=== PATIENT | female | born 1935 | race Caucasian/White ===

== ENCOUNTER 2016-10-21 01:34 | Observation (INO) | payer MEDICARE, OTHER ==
[~2016-10-21] VITALS: Ht 162.6 cm; Wt 121.5 kg
[2016-10-21] VITALS (10 sets, daily range): BP systolic 113–130; BP diastolic 55–60; PULSE 65–75; RESP 20; TEMP 98.5; Ht 162.6 cm; Wt 121.5 kg
--- NOTE | 2016-10-21 01:54 | ERA ---
ER Documentation Chief Complaint Date/Time DATE: 10/21/16 TIME: 01:54 Chief Complaint Shortness of breath HPI The patient is a 81-year-old female, presenting to the ER because of acute on chronic shortness of breath. She denies chest pain with exertion of vomiting or diaphoresis, denies abdominal pain, vomiting, dysuria, diarrhea. She does not smoke nor drink. She does use 2 L nasal cannula continuously Past medical history: Asthma, CAD, chronic respiratory failure, obesity Past surgical history: None ROS All systems reviewed and are negative except as per history of present illness. Medications Home Meds Reported Medications Montelukast Sodium* (Montelukast Sodium*) 10 Mg Tablet, 10 MG PO QHS, #30 TAB 10/21/16 Pravastatin Sodium* (Pravastatin Sodium*) 40 Mg Tablet, 40 MG PO HS, TAB 10/21/16 Atenolol* (Atenolol*) 25 Mg Tablet, 25 MG PO DAILY, #30 TAB 10/21/16 Diclofenac Sodium* (Diclofenac Sodium*) 75 Mg Tablet.dr, 75 MG PO DAILY, #60 TAB 10/21/16 Furosemide* (Furosemide*) 20 Mg Tablet, 20 MG PO DAILY, #60 TAB 10/21/16 Nitroglycerin* (Nitroglycerin* Patch) 0.2 mg/hr Patch, 1 PATCH TD DAILY, PATCH 10/21/16 Nitroglycerin* (Nitroglycerin* SL) 0.4 Mg Tab.subl, 0.4 MG SL Q5MIN Y for CHEST PAIN, BOTTLE 10/21/16 Theophylline Anhydrous* (Theophylline* ER) 400 Mg Tablet.sa, 400 MG PO BID, TAB.SA 10/21/16 Levalbuterol* (Xopenex* HFA) 15 Gm Inha, 2 PUFFS INH Q4H Y for WHEEZING AND SOB , INHALER 10/21/16 Allergies Allergies: Coded Allergies: No Known Allergy (Unverified , 10/21/16) Physical Exam Vitals Vital Signs Date Time Temp Pulse Resp B/P Pulse Ox O2 Delivery O2 Flow Rate FiO2 10/21/16 03:00 97 2.0 28 10/21/16 01:40 Nasal Cannula 2 10/21/16 01:40 98.5 90 18 104/55 100 Nasal Cannula 2.0 10/21/16 01:40 98.5 90 18 104/55 100 10/21/16 01:40 Nasal Cannula 2.0 Physical Exam Const: No acute distress. Head: Atraumatic. Eyes: Normal Conjunctiva. ENT: Normal External Ears, Nose and Mouth. Neck: Full range of motion. No meningismus. Resp: Clear to auscultation bilaterally. Cardio: Regular rate and rhythm. Abd: Soft, non distended, normal bowel sounds, non tender. Skin: No petechiae or rashes. Back: No midline or flank tenderness. Ext: Mild edema.No calf tenderness Neur: Awake and alert. No focal deficit Psych: Normal Mood and Affect. Result Diagram: 10/21/1622910/21/16229 Results 24 hrs Laboratory Tests Test 10/21/16 02:30 White Blood Count 7.810^3/ul Red Blood Count 4.1910^6/ul Hemoglobin 11.4g/dl Hematocrit 35.5% Mean Corpuscular Volume 84.7fl Mean Corpuscular Hemoglobin 27.2pg Mean Corpuscular Hemoglobin Concent 32.1g/dl Red Cell Distribution Width 14.0% Platelet Count 31903^3/UL Mean Platelet Volume 10.4fl Neutrophils % 73.7% Lymphocytes % 13.9% Monocytes % 9.5% Eosinophils % 2.2% Basophils % 0.4% Nucleated Red Blood Cells % 0.0/100WBC Neutrophils # (Manual) 5.710^3/ul Lymphocytes # 1.110^3/ul Monocytes # 0.710^3/ul Eosinophils # 0.210^3/ul Basophils # 0.010^3/ul Nucleated Red Blood Cells # 0.010^3/ul Prothrombin Time 13.7Sec Prothrombin Time Ratio 1.1 INR International Normalized Ratio 1.05 Activated Partial Thromboplast Time 28.8Sec D-Dimer 3873.88ng/ml D-Dimer Comment Sodium Level 138mmol/L Potassium Level 3.7mmol/L Chloride Level 99mmol/L Carbon Dioxide Level 32mmol/L Anion Gap 11 Blood Urea Nitrogen 17mg/dl Creatinine 0.90mg/dl Glucose Level 141mg/dl Calcium Level 9.0mg/dl Troponin I < 0.012ng/ml B-Type Natriuretic Peptide 134PG/ML Current Medications Medications (Trade) Dose Ordered Sig/Cece Route PRN Reason Start Time Stop Time Status Last Admin Dose Admin Enoxaparin Sodium (Lovenox) 135 mg ONCE STAT SC 10/21/16 04:26 10/21/16 04:28 DC 10/21/16 05:14 Procedures/MDM EKG: Read by emergency physician Rate/Rhythm: Normal Sinus Rhythm 86 beats/min QRS, ST, T-waves: No ST elevation, no T inversion, Sinus arrhythmia, prolonged QT Impression: Abnormal EKG [place] [address] Radiology Main Line: [phone] DIAGNOSTIC IMAGING REPORT Patient: ANA ZAVALA : 1935 Age: 81 Sex: F MR #: [id number] DOS: 10/21/16 0159 Ordering MD: ROMEL BETTS MD Location: E/R Room/Bed: PROCEDURE: XR Chest. CLINICAL INDICATION: Shortness of breath TECHNIQUE: Single frontal view of the chest was obtained COMPARISON: None FINDINGS: There is enlargement of the cardiac silhouette, appearance of a small to moderate left pleural effusion and mild diffuse bilateral increased interstitial lung densities which could represent interstitial pulmonary edema and/or chronic changes. ECG leads are projected over the chest. The patient is rotated to the left. Calcification in the aortic arch. Degenerative changes in thoracic spine and right shoulder. IMPRESSION: Enlargement of the cardiac silhouette, appearance of a small to moderate left pleural effusion and mild diffuse bilateral increased interstitial lung densities which could represent interstitial pulmonary edema and/or chronic changes. RPTAT: HJES .Anthony Fairbanks MD, MD Date Time Electronically viewed and signed by .Anthony Fairbanks MD, on 10/21/2016 03:55 .S/ CC: ROMEL BETTS MD Bilateral lower extremity venous ultrasound was negative for DVT per technologist, official reading is pending CTA of the chest to rule out pulmonary embolism cannot be done because of patient weight MEDICAL MAKING DECISION: The patient is 81-year-old female, presenting with acute dyspnea with elevated d-dimer, high probability for pulmonary embolism. Risks and benefits of anticoagulation were discussed with the patient who consented for empiric treatment. She was treated empirically Lovenox 1 mg/kg subcutaneously The differential diagnoses considered include but are not limited to asthma, COPD, pneumonia, pulmonary embolus, pleural effusion, congestive heart failure. Departure Diagnosis: Primary Impression: Shortness of breath Additional Impressions: Elevated d-dimer Anemia Condition: Stable Comments I discussed the findings with the patient. I discussed the patient with the on- call hospitalist Dr. Brush. who was made aware of the lab, the treatment, the patient condition. The patient is admitted to telemetry. She will probably need a VQ scan to rule out pulmonary embolism ROMEL BETTS MD Oct 21, 2016 01:54
[2016-10-21 03:01] LABS: BASOPHILS % 0.4 % (0.0-2.0); EOSINOPHILS # 0.2 10^3/ul (0.0-0.5); EOSINOPHILS % 2.2 % (0.0-7.0); HEMATOCRIT 35.5 % (37.0-47.0); HEMOGLOBIN 11.4 g/dl (12.0-16.0); LYMPHOCYTES # 1.1 10^3/ul (0.8-2.9); LYMPHOCYTES % 13.9 % (15.0-51.0); MEAN CORPUSCULAR HEMOGLOBIN 27.2 pg (29.0-33.0); MEAN CORPUSCULAR HGB CONC 32.1 g/dl (32.0-37.0); MEAN CORPUSCULAR VOLUME 84.7 fl (82.0-101.0); MEAN PLATELET VOLUME 10.4 fl (7.4-10.4); MONOCYTE # 0.7 10^3/ul (0.3-0.9); MONOCYTES % 9.5 % (0.0-11.0); NEUTROPHILS % 73.7 % (39.0-77.0); PLATELET COUNT 220 10^3/UL (140-415); RED BLOOD COUNT 4.19 10^6/ul (4.20-5.40); WHITE BLOOD COUNT 7.8 10^3/ul (4.8-10.8)
[2016-10-21 03:22] LABS: ANION GAP 11 (8-16); BLOOD UREA NITROGEN 17 mg/dl (7-20); CARBON DIOXIDE 32 mmol/L (21-31); CHLORIDE 99 mmol/L (97-110); GLUCOSE 141 mg/dl (70-220); INR 1.05; POTASSIUM 3.7 mmol/L (3.5-5.1); PROTIME 13.7 Sec (12.2-14.2); PT RATIO 1.1; SODIUM 138 mmol/L (135-144)
[2016-10-21 03:23] LABS: PARTIAL THROMBOPLASTIN TIME 28.8 Sec (25.0-35.0)
[2016-10-21 03:25] LABS: D-DIMER 3873.88 ng/ml (<460)
[2016-10-21 03:37] LABS: TROPONIN-I < 0.012 ng/ml (0.00-0.12)
--- NOTE | 2016-10-21 03:55 | RADRPT ---
PROCEDURE: XR Chest. CLINICAL INDICATION: Shortness of breath TECHNIQUE: Single frontal view of the chest was obtained COMPARISON: None FINDINGS: There is enlargement of the cardiac silhouette, appearance of a small to moderate left pleural effus ion and mild diffuse bilateral increased interstitial lung densities which could represent interstit ial pulmonary edema and/or chronic changes. ECG leads are projected over the chest. The patient is rotated to the left. Calcification in the aortic arch. Degenerative changes in thoracic spine and right shoulder. IMPRESSION: Enlargement of the cardiac silhouette, appearance of a small to moderate left pleural effusion and m ild diffuse bilateral increased interstitial lung densities which could represent interstitial pulmo nary edema and/or chronic changes. RPTAT: HJES .Anthony Fairbanks MD, MD Date Time Electronically viewed and signed by .Anthony Fairbanks MD, MD on 10/21/2016 03:55 .S/
[2016-10-21] MEDS ORDERED: NITR0.4T6 SL (03:58)
[2016-10-21] MEDS ORDERED: THEO400T2 PO (03:58)
[2016-10-21] MEDS ORDERED: NITR1PAT47 TD (03:58)
[2016-10-21] MEDS ORDERED: DICL75TA2 PO (03:58)
[2016-10-21] MEDS ORDERED: FURO20TA3 PO (03:58)
[2016-10-21] MEDS ORDERED: LEVA15HF6 INH (03:58)
[2016-10-21] MEDS ORDERED: MONT10TA24 PO (03:58)
[2016-10-21] MEDS ORDERED: ATEN-51 PO (03:58)
[2016-10-21] MEDS ORDERED: PRAV40TA76 PO (03:58)
[2016-10-21] MEDS ORDERED: ENOXAPARIN 100 MG/ML SYG SC STA (04:26)
--- NOTE | 2016-10-21 06:56 | RADRPT ---
PROCEDURE: Ultrasound of the bilateral lower extremity venous system. CLINICAL INDICATION: Bilateral leg pain and swelling. TECHNIQUE: Tariq scale with and without compression, color doppler, spectral doppler of the venous system of the bilateral lower extremities was performed. Venous augmentation maneuvers were utilized . COMPARISON: No prior studies are available for comparison. FINDINGS: RIGHT: Common femoral vein:Patent and compressible. Femoral vein:Patent and compressible. Popliteal vein:Patent and compressible. Visualized calf veins:Patent and compressible. Soft tissues:Normal LEFT: Common femoral vein:Patent and compressible. Femoral vein:Patent and compressible. Popliteal vein:Patent and compressible. Visualized calf veins:Patent and compressible. Soft tissues:Normal IMPRESSION: 1. No evidence of deep vein thrombosis. RPTAT: PP .Ulises Chung MD, Date Time Electronically viewed and signed by .Ulises Chung MD, on 10/21/2016 06:55 .B/
[2016-10-21] MEDS ORDERED: ALBUTEROL/IPRATROPIUM (NEB) 3 ML AMP HHN PRN (07:00)
[2016-10-21] MEDS ORDERED: morphine 2 MG INJ IV PRN (07:00)
[2016-10-21] MEDS ORDERED: VANCOMYCIN IV PER PHARMACY XX SCH (07:30)
[2016-10-21] MEDS ORDERED: THEOPHYLLINE 200 MG PO SCH (09:00)
[2016-10-21] MEDS: CEFEPIME 1GM/50 ML (PMX) 50 ML IVPB SCH ×2 (09:17→21:15)
[2016-10-21] MEDS: FUROSEMIDE 20 MG INJ IV SCH (09:18)
[2016-10-21] MEDS: ATENOLOL 25 MG TAB PO SCH (09:19)
[2016-10-21] MEDS ORDERED: VANCOMYCIN 2 GM in SOD CHLORIDE 0.9% 500 ML IVPB SCH (10:00)
--- NOTE | 2016-10-21 10:54 | HP ---
Date/Time of Note Date/Time of Note DATE: 10/21/16 TIME: 10:44 Assessment/Plan VTE Prophylaxis VTE Prophylaxis Intervention: SCD's Assessment/Plan Assessment/Plan 1. Shortness of breath: exacerbation of reactive airway dz vs CHF exac vs infectious vs possible PE - need to r/o PE especially given elevated D-dimer - Will order V/Q scan since pt can't fit in for CT pulmonary angiogram - will treat with supplemental oxygen, bronchodilators, steroid, diuretics - will treat with IV lasix and obtain a 2D-echo given CXR findings of small to moderate left pleural effusion and mild diffuse bilateral increased interstitial lung densities which could represent interstitial pulmonary edema and/or chronic changes. 2. Hx of CAD -cont cardiac meds 3. hx of hypothyroidism - cont synthroid 4. Morbid Obesity with BMI of 46 - weight reduction advised HPI/ROS Admit Date/Time Admit Date/Time Oct 21, 2016 at 05:13 Hx of Present Illness This is an 81 yo female with hx of Asthma, CAD, morbid obesity and hypothyroidism wjo presented to ER c/o SOB. She said she has chronic SOB, but has been progressively getting worse for several weeks. She said she was hospitalized at [facility] 2 weeks ago for same and said she was told everything was ok. Denied chest pain, cough, fever or chills. PMH/Family/Social Social History Smoking Status: Never smoker Exam/Review of Systems Vital Signs Vitals Vital Signs Date Time Temp Pulse Resp B/P Pulse Ox O2 Delivery O2 Flow Rate FiO2 10/21/16 08:30 65 10/21/16 07:53 98.0 20 113/55 99 10/21/16 05:48 Nasal Cannula 2.0 10/21/16 03:00 28 Labs Result Diagram: 10/21/16 0230 10/21/16 0230 Medications Medications Current Medications Enoxaparin Sodium (Lovenox) 120 mg Q12 SC ; Start 10/21/16 at 21:00 Morphine Sulfate (morphine) 2 mg Q4H PRN IV PAIN; Start 10/21/16 at 07:00 Atenolol (Tenormin) 25 mg DAILY PO Last administered on 10/21/16t 09:19; Admin Dose 25 MG; Start 10/21/16 at 09:00 Montelukast Sodium (Singulair) 10 mg QHS PO ; Start 10/21/16 at 21:00 Theophylline (Alexandru-Dur) 400 mg BID PO Last administered on 10/21/16 09:15; Admin Dose 400 MG; Start 10/21/16 at 09:00 Atorvastatin Calcium (Lipitor) 10 mg DAILY@21 PO ; Start 10/21/16 at 21:00 Furosemide 20 mg 20 mg DAILY IV Last administered on 10/21/16 09:18; Admin Dose 20 MG; Start 10/21/16 at 09:00 Cefepime HCl 50 ml @ 100 mls/hr Q12 IVPB Last administered on 10/21/16 09:17; Admin Dose 100 MLS/HR; Start 10/21/16 at 09:00 Vancomycin HCl 2 gm/Sodium Chloride 500 ml @ 125 mls/hr ONCE@10 IVPB ; Start at 10:00; Stop 10/21/16 at 18:00 Vancomycin HCl/ Sodium Chloride (Vancocin/NS) 250 ml @ 83.333 mls/ hr Q24H IVPB ; Start 10/22/16 at 10:00 DARCY PARKER MD Oct 21, 2016 10:54
--- NOTE | 2016-10-21 11:20 | PN ---
Date/Time of Note Date/Time of Note DATE: 10/21/16 TIME: 11:17 Assessment/Plan VTE Prophylaxis VTE Prophylaxis Intervention: LMWH Assessment/Plan Chief Complaint/Hosp Course S: shortness of breath. No known aggravating or relieving factors. Unable to Touch deep breath. Denies any rohan cough phlegm fever. Denies any change in edema. No ill contacts. Admitted to [facility] 2 weeks ago. Uses home O2. O: vss No pallor JVD thick neck Regular no murmur rub gallop Poor air entry bilaterally no tachypnea at rest Bowel sounds positive diminished nontender nondistended obese no rigidity rebound guarding appreciated Some edema stasis bilaterally A/P 1. Dyspnea, possibly acute. R/o ACS; PE/VQ. 2. Probable TONY/OHS 3. Chr respiratory failure home O2 status 4. Morbid obesity 5. CAD? Not on regular aspirin 6. Chr dyslipidemia/hypertension 7. COPD/asthma Problems: Exam/Review of Systems Vital Signs Vitals Vital Signs Date Time Temp Pulse Resp B/P Pulse Ox O2 Delivery O2 Flow Rate FiO2 10/21/16 08:30 65 10/21/16 07:53 98.0 20 113/55 99 10/21/16 05:48 Nasal Cannula 2.0 10/21/16 03:00 28 Results Result Diagram: 10/21/16 0230 10/21/16 0230 Results 24 hrs Laboratory Tests Test 10/21/16 02:30 White Blood Count 7.8 Red Blood Count 4.19 L Hemoglobin 11.4 L Hematocrit 35.5 L Mean Corpuscular Volume 84.7 Mean Corpuscular Hemoglobin 27.2 L Mean Corpuscular Hemoglobin Concent 32.1 Red Cell Distribution Width 14.0 Platelet Count 220 Mean Platelet Volume 10.4 Neutrophils % 73.7 Lymphocytes % 13.9 L Monocytes % 9.5 Eosinophils % 2.2 Basophils % 0.4 Nucleated Red Blood Cells % 0.0 Neutrophils # (Manual) 5.7 Lymphocytes # 1.1 Monocytes # 0.7 Eosinophils # 0.2 Basophils # 0.0 Nucleated Red Blood Cells # 0.0 Prothrombin Time 13.7 Prothrombin Time Ratio 1.1 INR International Normalized Ratio 1.05 Activated Partial Thromboplast Time 28.8 D-Dimer 3873.88 H D-Dimer Comment Sodium Level 138 Potassium Level 3.7 Chloride Level 99 Carbon Dioxide Level 32 H Anion Gap 11 Blood Urea Nitrogen 17 Creatinine 0.90 Glucose Level 141 Calcium Level 9.0 Troponin I < 0.012 B-Type Natriuretic Peptide 134 Medications Medications Current Medications Enoxaparin Sodium (Lovenox) 120 mg Q12 SC ; Start 10/21/16 at 21:00 Morphine Sulfate (morphine) 2 mg Q4H PRN IV PAIN; Start 10/21/16 at 07:00 Atenolol (Tenormin) 25 mg DAILY PO Last administered on 10/21/16 09:19; Admin Dose 25 MG; Start 10/21/16 at 09:00 Montelukast Sodium (Singulair) 10 mg QHS PO ; Start 10/21/16 at 21:00 Theophylline (Alexandru-Dur) 400 mg BID PO Last administered on 10/21/16 09:15; Admin Dose 400 MG; Start 10/21/16 at 09:00 Atorvastatin Calcium (Lipitor) 10 mg DAILY@21 PO ; Start 10/21/16 at 21:00 Furosemide 20 mg 20 mg DAILY IV Last administered on 10/21/16 09:18; Admin Dose 20 MG; Start 10/21/16 at 09:00 Cefepime HCl 50 ml @ 100 mls/hr Q12 IVPB Last administered on 10/21/16 09:17; Admin Dose 100 MLS/HR; Start 10/21/16 at 09:00 Vancomycin HCl 2 gm/Sodium Chloride 500 ml @ 125 mls/hr ONCE@10 IVPB ; Start at 10:00; Stop 10/21/16 at 18:00 Vancomycin HCl/ Sodium Chloride (Vancocin/NS) 250 ml @ 83.333 mls/ hr Q24H IVPB ; Start 10/22/16 at 10:00 KRIS IZQUIERDO MD Oct 21, 2016 11:20
[2016-10-21] MEDS ORDERED: ONDANSETRON 4 MG INJ IV PRN (11:30)
[2016-10-21] MEDS ORDERED: OXYCODONE/ACETAMINOPHEN (5/325) TAB PO PRN (11:30)
[2016-10-21] MEDS ORDERED: GUAIFENESIN 20 MG/ML 5ML CUP PO PRN (11:30)
[2016-10-21] MEDS: LACTOBACILLUS RHAMNOSUS CAP PO SCH ×2 (11:30→21:00)
[2016-10-21] MEDS: ATORVASTATIN 10 MG TAB PO SCH (21:07)
[2016-10-21] MEDS: MONTELUKAST 10 MG TAB PO SCH (21:07)
[2016-10-21] MEDS: ENOXAPARIN 60 MG/0.6 ML SYG SC SCH (21:15)
[2016-10-21] MEDS ORDERED: THEOPHYLLINE (SR) 200 MG CAPSR PO SCH (21:20)
[2016-10-21] MEDS: THEOPHYLLINE (SR) 200 MG CAPSR PO SCH (21:35)
[2016-10-22] VITALS (12 sets, daily range): BP systolic 109–136; BP diastolic 55–64; PULSE 64–75; RESP 18–20
[2016-10-22 06:55] LABS: BASOPHIL # 0.1 10^3/ul (0.0-0.1); BASOPHILS % 0.8 % (0.0-2.0); EOSINOPHILS # 0.7 10^3/ul (0.0-0.5); EOSINOPHILS % 10.1 % (0.0-7.0); HEMATOCRIT 36.3 % (37.0-47.0); HEMOGLOBIN 11.7 g/dl (12.0-16.0); LYMPHOCYTES % 15.3 % (15.0-51.0); MEAN CORPUSCULAR HEMOGLOBIN 27.7 pg (29.0-33.0); MEAN CORPUSCULAR HGB CONC 32.2 g/dl (32.0-37.0); MEAN PLATELET VOLUME 10.1 fl (7.4-10.4); MONOCYTE # 0.6 10^3/ul (0.3-0.9); MONOCYTES % 9.5 % (0.0-11.0); NEUTROPHILS % 64.1 % (39.0-77.0); PLATELET COUNT 217 10^3/UL (140-415); RED BLOOD COUNT 4.22 10^6/ul (4.20-5.40); RED CELL DISTRIBUTION WIDTH 14.1 % (11.5-14.5); WHITE BLOOD COUNT 6.6 10^3/ul (4.8-10.8)
[2016-10-22 07:13] LABS: PROTIME 13.2 Sec (12.2-14.2)
[2016-10-22 07:25] LABS: ALANINE AMINOTRANSFERASE 22 IU/L (13-69); ALBUMIN 3.5 g/dl (3.3-4.9); ALBUMIN/GLOBULIN RATIO 0.94; ALKALINE PHOSPHATASE 92 IU/L (42-121); ANION GAP 8 (8-16); ASPARTATE AMINO TRANSFERASE 18 IU/L (15-46); BILIRUBIN,INDIRECT 0.2 mg/dl (0-1.1); BILIRUBIN,TOTAL 0.2 mg/dl (0.2-1.3); BLOOD UREA NITROGEN 14 mg/dl (7-20); CALCIUM 8.8 mg/dl (8.4-10.2); CARBON DIOXIDE 35 mmol/L (21-31); CHLORIDE 100 mmol/L (97-110); CREATININE 0.65 mg/dl (0.44-1.00); GLUCOSE 114 mg/dl (70-220); MAGNESIUM 2.1 mg/dl (1.7-2.5); PHOSPHORUS 3.7 mg/dl (2.5-4.9); POTASSIUM 3.6 mmol/L (3.5-5.1); SODIUM 139 mmol/L (135-144); TOTAL PROTEIN 7.2 g/dl (6.1-8.1)
[2016-10-22 07:30] LABS: TROPONIN-I < 0.012 ng/ml (0.00-0.12)
[2016-10-22] MEDS: LACTOBACILLUS RHAMNOSUS CAP PO SCH ×3 (09:00→21:00)
[2016-10-22] MEDS ORDERED: THEOPHYLLINE (SR) 200 MG CAPSR PO SCH (09:00)
[2016-10-22] MEDS: ATENOLOL 25 MG TAB PO SCH ×2 (09:00→09:34)
[2016-10-22] MEDS: CEFEPIME 1GM/50 ML (PMX) 50 ML IVPB SCH ×2 (09:34→21:33)
[2016-10-22] MEDS: FUROSEMIDE 20 MG INJ IV SCH (09:35)
[2016-10-22] MEDS: THEOPHYLLINE (SR) 200 MG CAPSR PO SCH (09:38)
[2016-10-22] MEDS: ENOXAPARIN 60 MG/0.6 ML SYG SC SCH ×2 (09:38→21:33)
[2016-10-22] MEDS ORDERED: VANCOMYCIN 1.5 GM in SOD CHLORIDE 0.9% 250 ML IVPB SCH (10:00)
[2016-10-22 10:23] LABS: THYROID STIMULATING HORMONE 0.614 MIU/L (0.465-4.680)
[2016-10-22] MEDS ORDERED: FUROSEMIDE 40 MG INJ IV ONE (11:00)
--- NOTE | 2016-10-22 11:36 | PN ---
Date/Time of Note Date/Time of Note DATE: 10/22/16 TIME: 11:32 Assessment/Plan VTE Prophylaxis VTE Prophylaxis Intervention: LMWH Assessment/Plan Chief Complaint/Hosp Course S: 10/21: admitted w dyspneas. No known agg/ relieving factors. Unable to take deep breaths. Denies any rohan cough phlegm fever. Denies any change in edema. No ill contacts. Admitted to [facility] 2 weeks ago. Uses home O2. 10/22: V/Q testing pending. No rohan dyspnea cough chest pain fever iill contacts or edema. Nonadherent to medical therapy. Seeing a supervisor heading for angina. Doent take atenolol. O: vss No pallor JVD. thick neck Reg no m/r/g ctab no tachypnea at rest Bs+ nt nd; obese no r/r/g appreciated Some edema/ stasis bilat A/P 1. Dyspnea, possibly acute. R/o ACS; VQ pending. 2. Probable TONY/OHS 3. Chr respiratory failure; home O2 status 4. Morbid obesity 5. CAD? Not on regular aspirin. started. add arb. 6. Chr dyslipidemia/hypertension; dc atenolol. 7. COPD/asthma 8. Prediabetes. Problems: Exam/Review of Systems Vital Signs Vitals Vital Signs Date Time Temp Pulse Resp B/P Pulse Ox O2 Delivery O2 Flow Rate FiO2 10/22/16 08:13 65 10/22/16 08:05 98.2 18 119/58 100 10/22/16 00:38 Nasal Cannula 2.0 10/21/16 03:00 28 Intake and Output 10/21/16 10/21/16 10/22/16 15:00 23:00 07:00 Intake Total 720 ml 340 ml Balance 720 ml 340 ml Results Result Diagram: 10/22/16 0611 10/22/16 0611 Results 24 hrs Laboratory Tests Test 10/22/16 06:11 White Blood Count 6.6 Red Blood Count 4.22 Hemoglobin 11.7 L Hematocrit 36.3 L Mean Corpuscular Volume 86.0 Mean Corpuscular Hemoglobin 27.7 L Mean Corpuscular Hemoglobin Concent 32.2 Red Cell Distribution Width 14.1 Platelet Count 217 Mean Platelet Volume 10.1 Neutrophils % 64.1 Lymphocytes % 15.3 Monocytes % 9.5 Eosinophils % 10.1 H Basophils % 0.8 Nucleated Red Blood Cells % 0.0 Neutrophils # (Manual) 4.3 Lymphocytes # 1.0 Monocytes # 0.6 Eosinophils # 0.7 H Basophils # 0.1 Nucleated Red Blood Cells # 0.0 Prothrombin Time 13.2 Prothrombin Time Ratio 1.0 INR International Normalized Ratio 1.00 Sodium Level 139 Potassium Level 3.6 Chloride Level 100 Carbon Dioxide Level 35 H Anion Gap 8 Blood Urea Nitrogen 14 Creatinine 0.65 Glucose Level 114 Hemoglobin A1c 6.0 H Calcium Level 8.8 Phosphorus Level 3.7 Magnesium Level 2.1 Total Bilirubin 0.2 Direct Bilirubin 0.00 Indirect Bilirubin 0.2 Aspartate Amino Transf (AST/SGOT) 18 Alanine Aminotransferase (ALT/SGPT) 22 Alkaline Phosphatase 92 Troponin I < 0.012 Total Protein 7.2 Albumin 3.5 Globulin 3.70 H Albumin/Globulin Ratio 0.94 Thyroid Stimulating Hormone (TSH) 0.614 Medications Medications Current Medications Enoxaparin Sodium (Lovenox) 120 mg Q12 SC Last administered on 10/22/16 09:38; Admin Dose 120 MG; Start 10/21/16 at 21:00 Morphine Sulfate (morphine) 2 mg Q4H PRN IV PAIN; Start 10/21/16 at 07:00 Atenolol (Tenormin) 25 mg DAILY PO Last administered on 10/21/16 09:19; Admin Dose 25 MG; Start 10/21/16 at 09:00 Montelukast Sodium (Singulair) 10 mg QHS PO Last administered on 10/21/16 21:07 ; Admin Dose 10 MG; Start 10/21/16 at 21:00 Atorvastatin Calcium 10 mg 10 mg DAILY@21 PO Last administered on 10/21/16 21: 07; Admin Dose 10 MG; Start 10/21/16 at 21:00 Cefepime HCl 50 ml @ 100 mls/hr Q12 IVPB Last administered on 10/22/16 09:34; Admin Dose 100 MLS/HR; Start 10/21/16 at 09:00 Vancomycin HCl/ Sodium Chloride (Vancocin/NS) 250 ml @ 83.333 mls/ hr Q24H IVPB Last administered on 10/22/16 10:17; Admin Dose 83.333 MLS/HR; Start at 10:00 Oxycodone/ Acetaminophen (Percocet (5/ 325)) 1 tab Q6H PRN PO PAIN; Start at 11:30 Ondansetron HCl (Zofran Inj) 4 mg Q4H PRN IV NAUSEA AND/OR VOMITING; Start 10/21 at 11:30 Guaifenesin (Robitussin Liquid Cup) 100 mg Q4H PRN PO COUGH; Start 10/21/16 at 11:30 Lactobacillus Acidophilus/ Rhamnosus (Culturelle) 1 cap BID PO ; Start 10/21/16 at 11:30 Theophylline (Alexandru-24) 200 mg BID PO Last administered on 10/22/16t 09:38; Admin Dose 200 MG; Start 10/21/16 at 21:30 Aspirin (Halfprin) 81 mg DAILY PO ; Start 10/23/16 at 09:00 Furosemide (Lasix) 20 mg DAILY PO ; Start 10/23/16 at 09:00 Losartan Potassium (Cozaar) 25 mg DAILY PO ; Start 10/23/16 at 09:00 KRIS IZQUIERDO MD Oct 22, 2016 11:36
[2016-10-22] MEDS: ATORVASTATIN 10 MG TAB PO SCH (21:32)
[2016-10-22] MEDS: MONTELUKAST 10 MG TAB PO SCH (21:32)
[2016-10-23] VITALS (12 sets, daily range): BP systolic 116–133; BP diastolic 58–69; PULSE 68–76; RESP 18–21
[2016-10-23] MEDS: THEOPHYLLINE (SR) 200 MG CAPSR PO SCH ×3 (01:21→21:00)
[2016-10-23] MEDS: LEVOTHYROXINE 150 MCG TAB PO SCH (06:09)
[2016-10-23 08:37] LABS: CREATININE 0.65 mg/dl (0.44-1.00); PHOSPHORUS 3.8 mg/dl (2.5-4.9); POTASSIUM 3.2 mmol/L (3.5-5.1)
[2016-10-23] MEDS ORDERED: POTASSIUM CHLORIDE (SR) 20 MEQ TAB PO STA (09:31)
[2016-10-23 09:36] LABS: BASOPHILS % 0.5 % (0.0-2.0); EOSINOPHILS # 0.7 10^3/ul (0.0-0.5); EOSINOPHILS % 11.3 % (0.0-7.0); HEMATOCRIT 39.9 % (37.0-47.0); HEMOGLOBIN 12.6 g/dl (12.0-16.0); LYMPHOCYTES # 1.1 10^3/ul (0.8-2.9); LYMPHOCYTES % 18.3 % (15.0-51.0); MEAN CORPUSCULAR HEMOGLOBIN 26.9 pg (29.0-33.0); MEAN CORPUSCULAR HGB CONC 31.6 g/dl (32.0-37.0); MEAN CORPUSCULAR VOLUME 85.1 fl (82.0-101.0); MEAN PLATELET VOLUME 10.3 fl (7.4-10.4); MONOCYTE # 0.6 10^3/ul (0.3-0.9); MONOCYTES % 10.3 % (0.0-11.0); NEUTROPHILS % 59.4 % (39.0-77.0); PLATELET COUNT 227 10^3/UL (140-415); RED BLOOD COUNT 4.69 10^6/ul (4.20-5.40); RED CELL DISTRIBUTION WIDTH 14.2 % (11.5-14.5)
--- NOTE | 2016-10-23 09:36 | PN ---
Date/Time of Note Date/Time of Note DATE: 10/23/16 TIME: 09:36 Assessment/Plan VTE Prophylaxis VTE Prophylaxis Intervention: LMWH Lines/Catheters IV Catheter Type (from Nrs): Peripheral IV Assessment/Plan Assessment/Plan 1. Dyspnea- improving - continue on bronchodilators - On home O2 - if worsens will need CXR to reevaluate pleural effusions seen on admission - V/Q scan not performed. Patient refusing at this time despite being counseled about risk of clot in setting of SOB and elevated DDimer - LE duplex negative for acute DVT - ECHO performed, awaiting results 2. hypokalemia - replaced and will continue to monitor 3. Possible obstructive hypoventilation syndrome/ Obstructive sleep apnea, [place] - Will most likely need sleep study as outpatient to assess 4. Chr respiratory failure; home O2 status 5. Morbid obesity 6. Hypertension - Per patient, follows with outside medical affairs director who d/c atenolol but started on antihypertensive - Currently on Losartan 25mg and BP well controlled - Patient voiced concerns about being put on antihypertensives since "nothing wrong with her heart" 7. Interstitial lung disease - continue on current bronchodilators and O2 - PRN duonebs 8. Prediabetes. - HbA1c 6.0 - Will need to be monitored as outpatient Medical records reviewed as well as labs and imaging results. Subjective 24 Hr Interval Summary Free Text/Dictation Patient seen and examined at bedside. Still experiencing shortness of breath but does admit to feeling better since admission. Requesting breathing treatments since was on them in the past and helped with SOB. Denies any fevers , wheezing, dizziness, chest pain, or abdominal issues. Has chronic constipation but denies any discomfort. Exam/Review of Systems Vital Signs Vitals Vital Signs Date Time Temp Pulse Resp B/P Pulse Ox O2 Delivery O2 Flow Rate FiO2 10/23/16 08:15 72 10/23/16 08:00 97.7 18 125/64 10/23/16 00:58 2.0 10/23/16 00:12 96 10/22/16 23:27 Nasal Cannula 10/21/16 03:00 28 Intake and Output 10/22/16 10/22/16 10/23/16 15:00 23:00 07:00 Intake Total 1000 ml 420 ml Balance 1000 ml 420 ml Exam General- morbidly obese, in no acute distress, alert and awake HEENT- No pallor JVD. thick neck CVS- Reg no m/r/g Lungs- poor air entry, CTAB, no tachypnea at rest GI- soft, nontender nondistended; obese no r/r/g appreciated ext- Some edema/stasis bilaterally Results Result Diagram: 10/22/16 0611 10/23/16 0733 Results 24 hrs Laboratory Tests Test 10/23/16 07:33 White Blood Count Pending Red Blood Count Pending Hemoglobin Pending Hematocrit Pending Mean Corpuscular Volume Pending Mean Corpuscular Hemoglobin Pending Mean Corpuscular Hemoglobin Concent Pending Red Cell Distribution Width Pending Platelet Count Pending Mean Platelet Volume Pending Sodium Level 138 Potassium Level 3.2 L Chloride Level 95 L Carbon Dioxide Level 35 H Anion Gap 11 Blood Urea Nitrogen 14 Creatinine 0.65 Glucose Level 141 Calcium Level 9.0 Phosphorus Level 3.8 Magnesium Level 2.0 Triglycerides Level 96 Cholesterol Level 158 LDL Cholesterol, Calculated 87 HDL Cholesterol 52 Cholesterol/HDL Ratio 3.0 Medications Medications Current Medications Enoxaparin Sodium (Lovenox) 120 mg Q12 SC Last administered on 10/22/16 21:33; Admin Dose 120 MG; Start 10/21/16 at 21:00 Morphine Sulfate (morphine) 2 mg Q4H PRN IV PAIN; Start 10/21/16 at 07:00 Montelukast Sodium (Singulair) 10 mg QHS PO Last administered on 10/22/16 21:32 ; Admin Dose 10 MG; Start 10/21/16 at 21:00 Atorvastatin Calcium 10 mg 10 mg DAILY@21 PO Last administered on 10/22/16 21: 32; Admin Dose 10 MG; Start 10/21/16 at 21:00 Cefepime HCl (Maxipime 1gm/50 ml (Pmx)) 50 ml @ 100 mls/hr Q12 IVPB Last administered on 10/22/16 21:33; Admin Dose 100 MLS/HR; Start 10/21/16 at 09:00 Oxycodone/ Acetaminophen (Percocet (5/ 325)) 1 tab Q6H PRN PO PAIN; Start at 11:30 Ondansetron HCl (Zofran Inj) 4 mg Q4H PRN IV NAUSEA AND/OR VOMITING; Start 10/21 at 11:30 Guaifenesin (Robitussin Liquid Cup) 100 mg Q4H PRN PO COUGH; Start 10/21/16 at 11:30 Lactobacillus Acidophilus/ Rhamnosus (Culturelle) 1 cap BID PO ; Start 10/21/16 at 11:30 Theophylline (Alexandru-24) 200 mg BID PO Last administered on 10/23/16 01:21; Admin Dose 200 MG; Start 10/21/16 at 21:30 Aspirin (Halfprin) 81 mg DAILY PO ; Start 10/23/16 at 09:00 Furosemide (Lasix) 20 mg DAILY PO ; Start 10/23/16 at 09:00 Losartan Potassium (Cozaar) 25 mg DAILY PO ; Start 10/23/16 at 09:00 Levothyroxine Sodium (Synthroid) 150 mcg DAILY@06 PO Last administered on 06:09; Admin Dose 150 MCG; Start 10/23/16 at 06:00 CLOTILDE OCAMPO MD Oct 23, 2016 09:36
[2016-10-23] MEDS: CEFEPIME 1GM/50 ML (PMX) 50 ML IVPB SCH ×2 (10:06→21:00)
[2016-10-23] MEDS: ASPIRIN (EC) 81 MG TAB PO SCH (10:07)
[2016-10-23] MEDS: FUROSEMIDE 20 MG TAB PO SCH (10:08)
[2016-10-23] MEDS: ENOXAPARIN 60 MG/0.6 ML SYG SC SCH ×2 (10:12→21:00)
[2016-10-23] MEDS: LOSARTAN 25 MG TAB PO SCH (10:13)
[2016-10-23] MEDS: LACTOBACILLUS RHAMNOSUS CAP PO SCH ×2 (10:13→21:00)
[2016-10-23] MEDS: MONTELUKAST 10 MG TAB PO SCH (21:00)
[2016-10-23] MEDS: ATORVASTATIN 10 MG TAB PO SCH (21:00)
[2016-10-24] VITALS (9 sets, daily range): BP systolic 110–128; BP diastolic 59–65; PULSE 66–77; RESP 17–20
[2016-10-24] MEDS: LEVOTHYROXINE 150 MCG TAB PO SCH (05:41)
[2016-10-24 07:35] LABS: BASOPHILS % 0.7 % (0.0-2.0); EOSINOPHILS # 0.6 10^3/ul (0.0-0.5); EOSINOPHILS % 10.6 % (0.0-7.0); HEMATOCRIT 34.3 % (37.0-47.0); HEMOGLOBIN 12.2 g/dl (12.0-16.0); LYMPHOCYTES # 1.2 10^3/ul (0.8-2.9); LYMPHOCYTES % 20.6 % (15.0-51.0); MEAN CORPUSCULAR HEMOGLOBIN 31.6 pg (29.0-33.0); MEAN CORPUSCULAR HGB CONC 35.6 g/dl (32.0-37.0); MEAN CORPUSCULAR VOLUME 88.9 fl (82.0-101.0); MEAN PLATELET VOLUME 10.8 fl (7.4-10.4); MONOCYTE # 0.6 10^3/ul (0.3-0.9); MONOCYTES % 9.7 % (0.0-11.0); NEUTROPHILS % 58.2 % (39.0-77.0); PLATELET COUNT 238 10^3/UL (140-415); RED BLOOD COUNT 3.86 10^6/ul (4.20-5.40); WHITE BLOOD COUNT 5.8 10^3/ul (4.8-10.8)
[2016-10-24 08:22] LABS: ALBUMIN 3.5 g/dl (3.3-4.9); CALCIUM 8.9 mg/dl (8.4-10.2); CREATININE 0.66 mg/dl (0.44-1.00); MAGNESIUM 1.9 mg/dl (1.7-2.5); PHOSPHORUS 3.3 mg/dl (2.5-4.9); POTASSIUM 3.9 mmol/L (3.5-5.1)
[2016-10-24] MEDS: LOSARTAN 25 MG TAB PO SCH (09:00)
[2016-10-24] MEDS: ENOXAPARIN 60 MG/0.6 ML SYG SC SCH (09:16)
[2016-10-24] MEDS: THEOPHYLLINE (SR) 200 MG CAPSR PO SCH (09:18)
[2016-10-24] MEDS: ASPIRIN (EC) 81 MG TAB PO SCH (09:20)
[2016-10-24] MEDS: CEFEPIME 1GM/50 ML (PMX) 50 ML IVPB SCH (09:21)
[2016-10-24] MEDS: LACTOBACILLUS RHAMNOSUS CAP PO SCH (09:21)
[2016-10-24] MEDS: FUROSEMIDE 20 MG TAB PO SCH (09:22)
--- NOTE | 2016-10-24 12:34 | PN ---
Date/Time of Note Date/Time of Note DATE: 10/24/16 TIME: 12:13 Assessment/Plan VTE Prophylaxis VTE Prophylaxis Intervention: LMWH Lines/Catheters IV Catheter Type (from Nrsg): Peripheral IV Urinary Cath still in place: No Assessment/Plan Assessment/Plan 1. Dyspnea- improved significantly - Will start patient on Proventil q4hr to help with respiratory distress. Patient states she uses a nebulizer at home as well - On 2L O2 at home and saturating well on 2L. may need to reevaluate O2 need prior to discharge with ABG - Patient follows with a Forging Die Finisher at [facility] and was seen about 3 weeks ago after last discharge from the hospital. - Discussed the possibility as well was risks of having a clot in lung due to elevated ddimer and SOB but patient still adamant about not having V/Q scan performed. Patient is too large to fit in the CT scanner for CTA. Patient denies chest pain, pain with deep inhalation, fevers and has not had an episodes of desaturation. - LE duplex negative for acute DVT - ECHO performed 10/21 and awaiting results. will need to look for right heart strain at this point as indicator for PE 2. Possible obstructive hypoventilation syndrome/ Obstructive sleep apnea, Pickjeremiahckian - Will need sleep study as outpatient to assess - Will advise to follow up with her jewelry manager after discharge 3. Chr respiratory failure; home O2 status - continue on 2L, currently saturating well - will need to see her Pulm after discharge and may need to reassess her ambulatory O2 requirement 4. Morbid obesity 5. Hypertension - Per patient, follows with outside routeman who d/c atenolol but started on antihypertensive - Currently on Losartan 25mg and BP well controlled - Patient voiced concerns about being put on antihypertensives since "nothing wrong with her heart" 6. Interstitial lung disease - continue on current bronchodilators and O2 - PRN duonebs for wheezing or worsening SOB 7. Prediabetes. - HbA1c 6.0 - Will need to be monitored as outpatient Subjective 24 Hr Interval Summary Free Text/Dictation Patient seen and examined this am. States feeling better than yesterday with improvement in shortness of breath. still has dry cough but denies any sputum production, wheezing, or worsening SOB. Denies any chest pain, nausea, vomiting , dizziness, or abdominal issues. Requesting breathing treatments q4hr which she says usually helps her. Exam/Review of Systems Vital Signs Vitals Vital Signs Date Time Temp Pulse Resp B/P Pulse Ox O2 Delivery O2 Flow Rate FiO2 10/24/16 11:44 97.9 61 18 110/59 99 10/24/16 01:46 2.0 10/22/16 23:27 Nasal Cannula 10/21/16 03:00 28 Intake and Output 10/23/16 10/23/16 10/24/16 15:00 23:00 07:00 Intake Total 300 ml Balance 300 ml Exam General- morbidly obese, in no acute distress, alert and awake HEENT- No pallor JVD. thick neck, non icteric CVS- Reg rate and rhythm, no m/r/g Lungs- poor air entry, CTAB, no tachypnea at rest GI- soft, nontender nondistended; obese no r/r/g appreciated ext- trace edema, venous stasis bilaterally Results Result Diagram: 10/24/16 0624 10/24/16 0624 Results 24 hrs Laboratory Tests Test 10/24/16 06:24 White Blood Count 5.8 Red Blood Count 3.86 L Hemoglobin 12.2 Hematocrit 34.3 L Mean Corpuscular Volume 88.9 Mean Corpuscular Hemoglobin 31.6 Mean Corpuscular Hemoglobin Concent 35.6 Red Cell Distribution Width 14.0 Platelet Count 238 Mean Platelet Volume 10.8 H Neutrophils % 58.2 Lymphocytes % 20.6 Monocytes % 9.7 Eosinophils % 10.6 H Basophils % 0.7 Nucleated Red Blood Cells % 0.0 Neutrophils # (Manual) 3.4 Lymphocytes # 1.2 Monocytes # 0.6 Eosinophils # 0.6 H Basophils # 0.0 Nucleated Red Blood Cells # 0.0 Sodium Level 138 Potassium Level 3.9 Chloride Level 97 Carbon Dioxide Level 34 H Anion Gap 11 Blood Urea Nitrogen 14 Creatinine 0.66 Glucose Level 159 Calcium Level 8.9 Phosphorus Level 3.3 Magnesium Level 1.9 Albumin 3.5 Medications Medications Current Medications Enoxaparin Sodium (Lovenox) 120 mg Q12 SC Last administered on 10/24/16t 09:16; Admin Dose 120 MG; Start 10/21/16 at 21:00 Morphine Sulfate (morphine) 2 mg Q4H PRN IV PAIN; Start 10/21/16 at 07:00 Montelukast Sodium (Singulair) 10 mg QHS PO Last administered on 10/23/16 21:00 ; Admin Dose 10 MG; Start 10/21/16 at 21:00 Atorvastatin Calcium 10 mg 10 mg DAILY@21 PO Last administered on 10/23/16 21: 00; Admin Dose 10 MG; Start 10/21/16 at 21:00 Cefepime HCl (Maxipime 1gm/50 ml (Pmx)) 50 ml @ 100 mls/hr Q12 IVPB Last administered on 10/24/16 09:21; Admin Dose 100 MLS/HR; Start 10/21/16 at 09:00 Oxycodone/ Acetaminophen (Percocet (5/ 325)) 1 tab Q6H PRN PO PAIN Last administered on 10/24/16 05:41; Admin Dose 1 TAB; Start 10/21/16 at 11:30 Ondansetron HCl (Zofran Inj) 4 mg Q4H PRN IV NAUSEA AND/OR VOMITING; Start 10/21 at 11:30 Guaifenesin (Robitussin Liquid Cup) 100 mg Q4H PRN PO COUGH; Start 10/21/16 at 11:30 Lactobacillus Acidophilus/ Rhamnosus (Culturelle) 1 cap BID PO Last administered on 10/24/16 09:21; Admin Dose 1 CAP; Start 10/21/16 at 11:30 Theophylline (Alexandru-24) 200 mg BID PO Last administered on 10/24/16 09:18; Admin Dose 200 MG; Start 10/21/16 at 21:30 Aspirin (Halfprin) 81 mg DAILY PO Last administered on 10/24/16 09:20; Admin Dose 81 MG; Start 10/23/16 at 09:00 Furosemide (Lasix) 20 mg DAILY PO Last administered on 10/24/16 09:22; Admin Dose 20 MG; Start 10/23/16 at 09:00 Losartan Potassium (Cozaar) 25 mg DAILY PO ; Start 10/23/16 at 09:00 Levothyroxine Sodium (Synthroid) 150 mcg DAILY@06 PO Last administered on 05:41; Admin Dose 150 MCG; Start 10/23/16 at 06:00 CLOTILDE OCAMPO MD Oct 24, 2016 12:33
[2016-10-24] MEDS: ALBUTEROL 0.083% (NEB) 2.5 MG/3 ML AMP HHN SCH ×2 (13:07→16:52)
--- NOTE | 2016-10-24 14:04 | RADRPT ---
Echocardiogram Report Patient Name: ANA ZAVALA Gender: Female Date: 1935 Study Date: 22-Oct-2016 Fender Finisher: SALLIE Location: I Ref. Physician: DARCY PARKER Quality: Technically Difficult Study Procedures: Transthoracic echocardiogram examination. Indications: Shortness of breath. 2D/M Mode Doppler Measurement Value Normal Range Measurement Value Normal Range AoR Diam MM 2.7 cm PV Peak Olayinka 0.9 m/sec ACS MM 1.7 cm PV Peak PG 3.0 mmHg LVIDd 2D 5.2 3.5 - 5.6 cm LVIDs 2D 3.7 2.1 - 4.1 cm LVPWd 2D 1.1 0.6 - 1.1 cm IVSd 2D 1.2 0.6 - 1.1 cm EDV 2D 127.3 cm3 ESV 2D 50.7 cm3 LA Dimen 2D 3.8 2.3 - 4.0 cm Findings Left Ventricle: Normal left ventricular cavity size. Normal left ventricular systolic function. Mild hypertrophy of the basal septum. The left ventricular ejection fraction is visually estimated at 55 %. Right Ventricle: Normal right ventricular size. Left Atrium: The left atrium is normal in size and appearance. Right Atrium: The right atrium is normal in size and appearance. Atrial Septum: The atrial septum is not well visualized. Mitral Valve: Mild mitral annular calcification. Trivial mitral regurgitation. Aortic Valve: Normal appearance and function of the aortic valve. No hemodynamically significant aortic stenosis by Doppler. No aortic regurgitation. Tricuspid Valve: Normal appearance of the tricuspid valve. There is trivial tricuspid regurgitation. Pulmonic Valve: The pulmonic valve is not well visualized. Pericardium: Normal pericardium with no significant pericardial effusion. Aorta: Normal aortic root. IVC: The inferior vena cava is not well visualized. Pulmonary Artery: Normal pulmonary artery size. Conclusions 1.Normal left ventricular cavity size. Normal left ventricular systolic function. Mild hypertrophy of the basal septum. The left ventricular ejection fraction is visually estimated at 55 %. 2.Mild mitral annular calcification. Trivial mitral regurgitation. 3.Normal appearance of the tricuspid valve. There is trivial tricuspid regurgitation. Electronically Signed By: Herbie Maxwell 24-Oct-2016 14:03:51 -0700 Patient Name: ANA ZAVALA Study Date: 22-Oct-2016 [id number]
[2016-10-24] MEDS ORDERED: LOSA25TA2 PO ×2 (16:22→16:41)
[2016-10-24] MEDS ORDERED: SYN15 PO (16:22)
--- NOTE | 2016-10-24 16:28 | PDOCDIS ---
Discharge Instructions DIAGNOSIS Discharge Diagnosis Respiratory distress secondary to reactive airway disease exacerbation CONDITION Patient Condition: Good HOME CARE INSTRUCTIONS: Diet Instructions: Low Fat /CholesterolSpecial Diet: heart healthy diet ACTIVITY: Activity Restrictions: No Restrictions FOLLOW UP/APPOINTMENTS Follow-up Plan Continue using 2L Oxygen at home Follow up with Pulmonary doctor after discharge to make sure you are on enough oxygen when walking Your were started on Losartan to help control your blood pressure. You will be given a prescription to take home. You should discuss this with your heart doctor and primary care physician if you have any issues or concerns Follow up with your Primary care physician after discharge in 1-2 weeks I recommend you get a sleep study as an outpatient as well which can be discussed with your Procurement Technician If your shortness of breath worsens, please return to the ED CLOTILDE OCAMPO MD Oct 24, 2016 16:28
--- NOTE | 2016-10-24 16:29 | DS ---
Date/Time of Note Date/Time of Note DATE: 10/24/16 TIME: 16:29 Discharge Summary Admission/Discharge Info Admit Date/Time Oct 21, 2016 at 05:13 Discharge Date/Time Oct 24, 2016 at 1807 Discharge Diagnosis Respiratory distress secondary to reactive airway disease exacerbation Patient Condition: Good Hx of Present Illness This is an 81 yo female with hx of Asthma, CAD, morbid obesity and hypothyroidism wjo presented to ER c/o SOB. She said she has chronic SOB, but has been progressively getting worse for several weeks. She said she was hospitalized at [facility] 2 weeks ago for same and said she was told everything was ok. Denied chest pain, cough, fever or chills. Hospital Course Patient was admitted for shortness of breath after being recently admitted to [facility] for similar issues. She states she saw her library associate a few weeks after discharge but was still experiencing shortness of breath which brought her to [facility]. She was found to have an elevated ddimer but due to patients size, was not able to have CTA performed to rule out pulmonary embolism. Patient refused to have V/Q scan performed as well. US of LE was negative for DVT and patient did not have pain with respirations, fever, elevated WBC, or desaturations which made it less likely that she had a pulmonary embolism. ECHO was performed but results did not return prior to patients discharge and will need to be followed up. Patient states she already follows with a Drawing Tracer and told that she does not have any cardiac issues. Patient uses 2L O2 at home and was continued on the same settings while inpatient with no episodes of desaturation. Patients respiratory issues are most likely secondary to morbid obesity and inactivity and patient instructed to follow up with her Trim Line Worker after discharge. Patient was adamant about not being continued on her atenolol and was started on Losartan for blood pressure control which she tolerated well. Patient condition remained stable and was discharged home via ambulance in good condition. Home Meds Active Scripts Losartan Potassium* (Cozaar*) 25 Mg Tablet, 25 MG PO DAILY for 30 Days, #30 TAB take one tablet daily by mouth for blood pressure Prov:CLOTILDE OCAMPO MD 10/24/16 Levothyroxine Sodium* (Synthroid*) 150 Mcg Tablet, 150 MCG PO DAILY@06 for 30 Days, #30 TAB Take one tablet by mouth in the morning 30 min before breakfast daily Prov:CLOTILDE OCAMPO MD 10/24/16 Reported Medications Montelukast Sodium* (Montelukast Sodium*) 10 Mg Tablet, 10 MG PO QHS, #30 TAB 10/21/16 Pravastatin Sodium* (Pravastatin Sodium*) 40 Mg Tablet, 40 MG PO HS, TAB 10/21/16 Diclofenac Sodium* (Diclofenac Sodium*) 75 Mg Tablet.dr, 75 MG PO DAILY, #60 TAB 10/21/16 Furosemide* (Furosemide*) 20 Mg Tablet, 20 MG PO DAILY, #60 TAB 10/21/16 Nitroglycerin* (Nitroglycerin* Patch) 0.2 mg/hr Patch, 1 PATCH TD DAILY, PATCH 10/21/16 Nitroglycerin* (Nitroglycerin* SL) 0.4 Mg Tab.subl, 0.4 MG SL Q5MIN Y for CHEST PAIN, BOTTLE 10/21/16 Theophylline Anhydrous* (Theophylline* ER) 400 Mg Tablet.sa, 400 MG PO BID, TAB.SA 10/21/16 Levalbuterol* (Xopenex* HFA) 15 Gm Inha, 2 PUFFS INH Q4H Y for WHEEZING AND SOB , INHALER 10/21/16 Discontinued Reported Medications Atenolol* (Atenolol*) 25 Mg Tablet, 25 MG PO DAILY, #30 TAB 10/21/16 Follow-up Plan Follow up with PCP in 1-2 weeks. Follow up with Trim Line Worker soon after discharge. Continue all bronchodilators Primary Care Provider Anthony Light Time spent on discharge: > 30 minutes Pending Labs Laboratory Tests Test 10/24/16 06:24 White Blood Count 5.810^3/ul (4.8-10.8) Red Blood Count 3.8610^6/ul (4.20-5.40) Hemoglobin 12.2g/dl (12.0-16.0) Hematocrit 34.3% (37.0-47.0) Mean Corpuscular Volume 88.9fl (82.0-101.0) Mean Corpuscular Hemoglobin 31.6pg (29.0-33.0) Mean Corpuscular Hemoglobin Concent 35.6g/dl (32.0-37.0) Red Cell Distribution Width 14.0% (11.5-14.5) Platelet Count 54393^3/UL (140-415) Mean Platelet Volume 10.8fl (7.4-10.4) Neutrophils % 58.2% (39.0-77.0) Lymphocytes % 20.6% (15.0-51.0) Monocytes % 9.7% (0.0-11.0) Eosinophils % 10.6% (0.0-7.0) Basophils % 0.7% (0.0-2.0) Nucleated Red Blood Cells % 0.0/100WBC (0.0-0.0) Neutrophils # (Manual) 3.410^3/ul (1.7-7.5) Lymphocytes # 1.210^3/ul (0.8-2.9) Monocytes # 0.610^3/ul (0.3-0.9) Eosinophils # 0.610^3/ul (0.0-0.5) Basophils # 0.010^3/ul (0.0-0.1) Nucleated Red Blood Cells # 0.010^3/ul (0.0-0.0) Sodium Level 138mmol/L (135-144) Potassium Level 3.9mmol/L (3.5-5.1) Chloride Level 97mmol/L (97-110) Carbon Dioxide Level 34mmol/L (21-31) Anion Gap 11 (8-16) Blood Urea Nitrogen 14mg/dl (7-20) Creatinine 0.66mg/dl (0.44-1.00) Glucose Level 159mg/dl (70-220) Calcium Level 8.9mg/dl (8.4-10.2) Phosphorus Level 3.3mg/dl (2.5-4.9) Magnesium Level 1.9mg/dl (1.7-2.5) Albumin 3.5g/dl (3.3-4.9) CLOTILDE OCAMPO MD Oct 24, 2016 16:29 CLOTILDE OCAMPO MD Oct 24, 2016 16:29
[2016-10-24 16:37] LABS: ANA SCREEN NEGATIVE (NEGATIVE)
== END 2016-10-24 19:00 | disposition home or self-care (01) ==
LOC: E/R 01:34 → INTOOBSV 05:13 → MS4 05:13
PROVIDERS: ADMIT Internal Medicine; ATTEND Internal Medicine
DX: J45.901 Unspecified asthma with (acute) exacerbation (principal); I25.10 Atherosclerotic heart disease of native coronary artery without angina pectoris; E03.9 Hypothyroidism, unspecified; E66.01 Morbid (severe) obesity due to excess calories; Z68.42 Body mass index [BMI] 45.0-49.9, adult; J96.10 Chronic respiratory failure, unspecified whether with hypoxia or hypercapnia; Z99.81 Dependence on supplemental oxygen; J84.9 Interstitial pulmonary disease, unspecified; R73.03 Prediabetes
CPT/HCPCS: 36415; 71010; 80048; 80053; 80061; 80069; 82306; 83036; 83735; 83880; 84100; 84443; 84484; 85025; 85378; 85610; 85730; 86038; 86430; 93005; 93306; 93970; 94640; 94664; 96372; 99285; G0378; J0692; J1650; J1940; J3370; J7040; J7050